=== PATIENT | female | born 1990 | race African-American/Black ===

== ENCOUNTER 2018-11-30 09:43 | Emergency (ER) | payer BC ==
[~2018-11-30] VITALS: Ht 170.2 cm; Wt 68.0 kg
[2018-11-30 09:55] VITALS: BP 129/77
--- NOTE | 2018-11-30 09:56 | NUR ---
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 Active bleeding noted. Pt stated she does not remember last tetanus shot date. AOx4, VSS. Will cont to monitor.
[2018-11-30] MEDS ORDERED: Tetanus/Diptheria/Pertussis IM ONE (10:15)
[2018-11-30] MEDS ORDERED: BACITRACIN15 GM TOPIC (11:10)
[2018-11-30] MEDS ORDERED: Bacitracin Oint UD TOPIC ONE (11:15)
[2018-11-30 11:21] VITALS: BP 124/82
[2018-11-30 11:22] VITALS: BP 124/82
--- NOTE | 2018-11-30 11:22 | NUR ---
ER DISCHARGE NOTE: Patient is cleared to be discharged per ERMD, pt is aox4, on room air, with stable vital signs. pt was given dc and prescription instructions, pt was able to verbalize understanding, pt id band removed. pt is able to ambulate with steady gait. pt took all belongings.
--- NOTE | 2018-11-30 15:02 | Emergency Room Report ---
History of Present Illness General Chief Complaint: Laceration Source: Patient Present Illness HPI 28-year-old female presents ED for evaluation. Patient walked in stating laceration to her left hand. 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 States there is a laceration between her third and fourth digits in the webspace on the left hand. Tetanus unknown. Pain is dull, 5 out of 10, nonradiating. Denies any other injuries. Full range of motion to all fingers. No other aggravating relieving factors. Denies any other associated symptoms Allergies: Coded Allergies: No Known Allergies (Unverified , 11/30/18) Patient History Past Medical History: none Past Surgical History: none Pertinent Family History: none Social History: Denies: smoking, alcohol use, drug use Last Menstrual Period: 11/20/18 Now: No Immunizations: UTD Reviewed Nursing Documentation: PMH: Agreed; PSxH: Agreed Nursing Documentation-PMH Past Medical History: No Stated History Review of Systems All Other Systems: negative except mentioned in HPI Physical Exam Vital Signs Date Time Temp Pulse Resp B/P (MAP) Pulse Ox O2 Delivery O2 Flow Rate FiO2 11/30/18 09:49 98.1 60 18 133/87 (102) 100 Room Air Sp02 EP Interpretation: reviewed, normal General Appearance: no apparent distress, alert, GCS 15, non-toxic Head: normocephalic Eyes: bilateral eye normal inspection, bilateral eye PERRL ENT: normal ENT inspection Neck: normal inspection Respiratory: normal inspection Cardiovascular #1: normal inspection Gastrointestinal: normal inspection Rectal: deferred Genitourinary: no CVA tenderness Musculoskeletal: back normal, gait/station normal, normal range of motion, non- tender Neurologic: alert, oriented x3, responsive, motor strength/tone normal, sensory intact, speech normal Psychiatric: normal inspection Skin: other - 1cm laceration between 3rd and 4th finger. no tendon involvement Lymphatic: normal inspection Procedures Laceration/Wound Repair Laceration/Wound Repair : Consent: Verbal Wound Location: upper extremity - L hand between 3rd and 4th finger Wound's Depth, Shape: linear Wound Explored: clean Betadine Prep?: Yes Anesthesia: 1% Lidocaine Wound Debrided: minimal Wound Repaired With: sutures Suture Size/Type: 5:0, nylon Layer Closure?: No Sterile Dressing Applied?: Yes Splint Applied?: No Sling Applied?: No Patient Tolerated: Well Complications: None Medical Decision Making Diagnostic Impression: Primary Impression: Laceration ER Course Hospital Course 28-year-old F presents to ED s/p laceration between 3rd and 4th finger on left hand Clinical course Patient placed on stretcher. After initial history and physical I ordered tetanus shot. wound irrigated. Anesthesia provided with lidocaine. Laceration repaired w/o complication. Dressing applied. discussed findings with patient. Wound care instructions given. Safe for discharge with close outpatient follow-up Diagnosis - laceration Stable and discharged to home with prescription for bacitracin. wound Care instructions given. Followup with PMD/ED in 10-12 days for suture removal. Return to ED if any signs of infection develop Last Vital Signs Date Time Temp Pulse Resp B/P (MAP) Pulse Ox O2 Delivery O2 Flow Rate FiO2 11/30/18 11:22 98.1 79 18 124/82 100 Room Air Status: improved Disposition: HOME, SELF-CARE Condition: Stable Scripts Bacitracin (Bacitracin) 28.4 Gm Oint...g. 1 APPLIC TOPIC THREE TIMES A DAY, #28.4 GM Prov: Jonathon Licona MD 11/30/18 Referrals: [facility] Patient Instructions: Laceration Care, Adult Additional Instructions: return to ED in 10-12 days for suture removal. return to ED if any signs of infection develop Jonathon Licona MD Nov 30, 2018 15:02
== END 2018-11-30 11:22 | disposition home or self-care (01) ==
LOC: EMR 10:11
DX: S61.412A Laceration without foreign body of left hand, initial encounter (principal); Z23 Encounter for immunization; W26.9XXA Contact with unspecified sharp object(s), initial encounter; Y92.9 Unspecified place or not applicable
CPT/HCPCS: 90471; 90715; 99283